=== PATIENT | female | born 1990 | race Two or more races ===

== ENCOUNTER 2024-11-13 18:51 | Emergency (ER) | payer OTHER ==
[~2024-11-13] VITALS: Ht 167.6 cm; Wt 79.4 kg
[2024-11-13] MEDS ORDERED: PRENATAL + DHA1 EAC1 PO (19:15)
[2024-11-13] MEDS ORDERED: IRON236 MG PO (19:16)
== END 2024-11-13 22:38 | disposition home or self-care (01) ==
LOC: ER 22:35
DX: G44.209 Tension-type headache, unspecified, not intractable (principal); Z91.040 Latex allergy status